=== PATIENT | male | born 1965 | race African-American/Black ===

== ENCOUNTER 2016-12-26 07:05 | Emergency (ER) | payer MEDICAID ==
[~2016-12-26] VITALS: Ht 177.8 cm; Wt 108.9 kg
[2016-12-26 07:05] VITALS: BP 167/88
[~2016-12-26 07:05] MED LIST: ALBUTEROL SULF8.5 GM INH; AMOXICILLIN500 MG ORAL; CYCLOBENZAPRINE10 MG ORAL; NAPROXEN500 M2 ORAL; NKM; PERCOCET 5-3251 EACH ORAL; TRAMADOL HCL50 MG ORAL
--- NOTE | 2016-12-26 08:35 | Diagnostic Imaging Report ---
Indication: Headache Technique: Contiguous 5 mm thick transaxial imaging of the head obtained in a Siemens Sensation [address] scanner. Soft tissue and bone windows generated. Total Dose length Product (DLP): [address] Dose Index Volume (CTDIvol): 70.38 mGy Comparison: none Findings: The size and configuration of the cortical sulci, basal cisterns, and ventricles are within normal limits for age. There is no mass effect, midline shift, or edema identified. There is no evidence of acute hemorrhage or abnormal intra-axial or extra-axial fluid collections. The bones and soft tissues are unremarkable. Impression: No mass effect, edema or acute bleed. The CT scanner at [facility] is accredited by the [employer] and the scans are performed using dose optimization techniques as appropriate to a performed exam including Automatic Exposure control.
--- NOTE | 2016-12-26 08:51 | Diagnostic Imaging Report ---
Indication: Trauma Technique: Continuous helical transaxial imaging of the maxillofacial structures obtained without intravenous contrast administration. Coronal 2-D reformats were also obtained. Study obtained in a Siemens sensation [address] Total Dose length Product (DLP): [address] Dose Index Volume (CTDIvol): 28.5 mGy Comparison: None Findings: No acute fracture seen. There is soft tissue swelling over the right supraorbital region. The orbits appear symmetric and normal. The globes are symmetric. There is no retrobulbar hemorrhage or proptosis. Extraocular muscles are unremarkable. Mastoids appear clear. There is mild to moderate mucosal thickening within portions of the paranasal sinuses consistent with sinusitis. Impression: Soft tissue contusion over the right supraorbital region. No acute fracture identified. Sinusitis The CT scanner at [facility] is accredited by the [employer] and the scans are performed using dose optimization techniques as appropriate to a performed exam including Automatic Exposure control.
[2016-12-26] MEDS ORDERED: ACETAMINOPHEN-1 EAC1 ORAL (08:58)
[2016-12-26 09:20] VITALS: BP 167/88
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
--- NOTE | 2016-12-26 11:24 | Diagnostic Imaging Report ---
Indication: Chest Pain Comparison: 01/10/15 A single view chest radiograph was obtained. Findings: Cardiomediastinal appearance is within normal limits for age. Pulmonary vascularity is appropriate. The diaphragmatic contour is smooth and costophrenic angles are sharp. No pleural effusions are identified. The bones are unremarkable. Impression: No acute findings
--- NOTE | 2016-12-26 11:24 | Diagnostic Imaging Report ---
Indication: Pain Findings: 3 views of the left wrist were obtained. No acute fractures, malalignment, erosions or periostitis are identified. Bone mineralization is within normal limits. Soft tissues are unremarkable. Impression: Negative examination of the left wrist.
--- NOTE | 2016-12-26 11:24 | Diagnostic Imaging Report ---
Indication: Pain Findings: 3 views of the right wrist were obtained. No acute fractures, malalignment, erosions or periostitis are identified. Bone mineralization is within normal limits. Soft tissues are unremarkable. Impression: Negative examination of the right wrist.
--- NOTE | 2016-12-27 07:25 | Cardiology Report ---
APPROVED REPORT EKG Measurement Heart [id number] Normal sinus rhythm Normal ECG
== END 2016-12-26 09:20 | disposition home or self-care (01) ==
LOC: EDBD 07:05 → EMR 07:44
DX: S60.219A Contusion of unspecified wrist, initial encounter (principal); S00.83XA Contusion of other part of head, initial encounter; E11.9 Type 2 diabetes mellitus without complications; I10 Essential (primary) hypertension; Z91.013 Allergy to seafood; Y04.2XXA Assault by strike against or bumped into by another person, initial encounter; Y92.9 Unspecified place or not applicable
CPT/HCPCS: 70450; 70486; 71010; 93005; 99284

== ENCOUNTER 2017-02-06 13:00 | Emergency (ER) | payer MEDICAID ==
[~2017-02-06] VITALS: Ht 177.8 cm; Wt 104.3 kg
[~2017-02-06 13:00] MED LIST changes: +ACETAMINOPHEN-1 EAC1 ORAL
--- NOTE | 2017-02-06 14:54 | Diagnostic Imaging Report ---
Indication: Pain 3 views of the left knee were obtained. Findings: No acute fracture, malalignment, or joint effusion are identified. Joint space is relatively well-maintained. Minimal marginal spurs are present. Bone mineralization is within normal limits for age. Impression: Mild osteoarthritis
--- NOTE | 2017-02-06 14:55 | Diagnostic Imaging Report ---
Indication: Pain Comparison: None Findings: 3 views of the right foot were obtained. No acute fractures, malalignment, erosions or periostitis are identified. Bone mineralization is within normal limits. Soft tissues are unremarkable. Impression: Negative examination of the right foot.
--- NOTE | 2017-02-06 14:55 | Diagnostic Imaging Report ---
Indication: Pain Comparison: None Findings: 3 views of the left foot were obtained. No acute fractures, malalignment, erosions or periostitis are identified. Bone mineralization is within normal limits. Soft tissues are unremarkable. Impression: No acute findings
[2017-02-06] MEDS ORDERED: IBUPROFEN600 MG ORAL (15:00)
[2017-02-06] MEDS ORDERED: ROBAXIN-750750 MG PO (15:04)
[2017-02-06] MEDS ORDERED: LISINOPRIL20 MG ORAL (15:08)
[2017-02-06 15:11] VITALS: BP 155/91
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
== END 2017-02-06 15:12 | disposition home or self-care (01) ==
LOC: EMR 14:03
DX: S39.012A Strain of muscle, fascia and tendon of lower back, initial encounter (principal); S63.619A Unspecified sprain of unspecified finger, initial encounter; S90.30XA Contusion of unspecified foot, initial encounter; E11.9 Type 2 diabetes mellitus without complications; I10 Essential (primary) hypertension; Z91.013 Allergy to seafood; M25.562 Pain in left knee; M79.672 Pain in left foot; M79.671 Pain in right foot; M17.12 Unilateral primary osteoarthritis, left knee; Y09 Assault by unspecified means; Y92.9 Unspecified place or not applicable
CPT/HCPCS: 29130; 99284